=== PATIENT | male | born 1945 | race Asian ===

== ENCOUNTER 2018-09-21 13:23 | Outpatient (CLI) | payer MEDICARE, MEDICAID ==
[~2018-09-21] VITALS: Ht 167.6 cm; Wt 68.9 kg
[2018-09-21 13:45] VITALS: BP 145/51
--- NOTE | 2018-09-21 18:45 | Consultation ---
DATE OF CONSULTATION: 09/20/2018 GASTROENTEROLOGY CONSULTATION CHIEF COMPLAINT: Evaluation for screening colonoscopy and history of colonic polyps. HISTORY OF PRESENT ILLNESS: This is a very pleasant 73-year-old male with past medical history of asthma, end-stage renal disease, chronic obstructive pulmonary disease, history of coronary artery bypass graft, on Plavix, was referred to us for evaluation of colonoscopy for screening and history of colonic polyps. PAST MEDICAL HISTORY: 1. Asthma. 2. End-stage renal disease, on hemodialysis. 3. COPD. 4. Coronary artery disease, status post gastric bypass in 2001. Also, the patient had the cardiac stent placement 3 years ago. PAST SURGICAL HISTORY: Coronary artery bypass graft. MEDICATIONS: Plavix and see the list. ALLERGIES: No known drug allergies. FAMILY HISTORY: Noncontributory. SOCIAL HISTORY: The patient used to smoke. Denies any alcohol or IV drug abuse. REVIEW OF SYSTEMS: A 10-point review of systems was performed and pertinent positives in the history of present illness. PHYSICAL EXAMINATION: VITAL SIGNS: Temperature 97.7, pulse is 65, respirations 20, and blood pressure is 144/61. HEENT: Normocephalic and atraumatic. Sclerae anicteric. NECK: Supple. No evidence of obvious lymphadenopathy. CARDIOVASCULAR: Regular rhythm. Plus S1 and S2. No obvious murmur. LUNGS: Clear to auscultation bilaterally. ABDOMEN: Positive bowel sounds. Soft and nontender. No rebound. No guarding. No peritoneal sign. EXTREMITIES: No cyanosis, no clubbing, no edema. ASSESSMENT AND PLAN: A 73-year-old male with coronary artery disease, chronic obstructive pulmonary disease, and history of colonic polyps, was referred to us for evaluation for repeat colonoscopy. The patient was told to stop the Plavix 3 days before the procedure. The patient was given the instruction for colonoscopy with prep and scheduled for 10/02/2018 at [facility]. I want to thank, Dr. Vazquez for this kind referral. Rigo Wallace M.D. DR: CHARLA JOB#: [id number] CC: Perry Vazquez M.D.; Fax#: [phone]
[2018-09-22] MEDS ORDERED: PLAVIX75 MG ORAL (08:35)
[2018-09-22] MEDS ORDERED: UNOBMED (08:35)
== END 2018-09-21 16:10 | disposition home or self-care (01) ==
LOC: PAN 13:23
DX: Z01.818 Encounter for other preprocedural examination (principal); J44.9 Chronic obstructive pulmonary disease, unspecified; N18.6 End stage renal disease; Z99.2 Dependence on renal dialysis; Z98.84 Bariatric surgery status; Z95.5 Presence of coronary angioplasty implant and graft; Z87.891 Personal history of nicotine dependence; Z79.02 Long term (current) use of antithrombotics/antiplatelets; Z86.010 Personal history of colon polyps; I25.10 Atherosclerotic heart disease of native coronary artery without angina pectoris
CPT/HCPCS: 99202

== ENCOUNTER 2018-10-02 07:09 | Day surgery (SDC) | payer MEDICARE, MEDICAID ==
[~2018-10-02] VITALS: Ht 167.6 cm; Wt 67.1 kg
[2018-10-02] VITALS (10 sets, daily range): BP systolic 146–168; BP diastolic 36–75
[~2018-10-02 07:09] MED LIST: PLAVIX75 MG ORAL; UNOBMED
[2018-10-02] MEDS ORDERED: SIMVASTATIN40 MG ORAL (08:22)
[2018-10-02] MEDS ORDERED: AMLODIPINE BESY10 MG ORAL (08:22)
[2018-10-02] MEDS ORDERED: INDAPAMIDE1.25 MG PO (08:22)
[2018-10-02] MEDS ORDERED: PLAVIX75 MG ORAL (08:22)
[2018-10-02] MEDS ORDERED: FLOMAX0.4 MG ORAL (08:22)
[2018-10-02] MEDS ORDERED: CARVEDILOL12.5 MG ORAL (08:22)
[2018-10-02] MEDS ORDERED: CALCIUM ACETAT667 MG PO (08:22)
[2018-10-02] MEDS ORDERED: GABAPENTIN100 MG ORAL (08:22)
[2018-10-02] MEDS ORDERED: OYSCO-500500 M1 PO (08:22)
[2018-10-02] MEDS ORDERED: AVAPRO300 MG ORAL (08:22)
[2018-10-02 08:25] LABS: BASOPHILS % (AUTO) 1.1 % (0.0-2.0); EOSINOPHILS % (AUTO) 2.9 % (0.0-3.0); HEMATOCRIT 36.3 % (42.0-52.0); HEMOGLOBIN 12.4 G/DL (14.2-18.0); LYMPHOCYTES % (AUTO) 15.9 % (20.0-45.0); MEAN CORPUSCULAR VOLUME 88 FL (80-99); MONOCYTES % (AUTO) 10.4 % (1.0-10.0); NEUTROPHILS % (AUTO) 69.7 % (45.0-75.0); PLATELET COUNT 175 K/UL (150-450); RED CELL DISTRIBUTION WIDTH 13.5 % (11.6-14.8); WHITE BLOOD COUNT 7.4 K/UL (4.8-10.8)
[2018-10-02 08:26] LABS: ANION GAP 7 mmol/L (5-15); BLOOD UREA NITROGEN 15 mg/dL (7-18); CALCIUM 8.9 MG/DL (8.5-10.1); CARBON DIOXIDE 30 MMOL/L (21-32); CHLORIDE 99 MMOL/L (98-107); CREATININE 4.7 MG/DL (0.55-1.30); SODIUM 136 MMOL/L (136-145)
[2018-10-02] MEDS ORDERED: Propofol 200mg/20ml IV ONE (08:48)
[2018-10-02] MEDS ORDERED: Lidocaine 1% MPF 10mg/ml 5ml ONE (08:48)
--- NOTE | 2018-10-02 08:57 | Short Stay Surgery H&P ---
History of Present Illness History of Present Illness Chief Complaint see recent office note HPI Armando Pitts is a 73 year old male who was admitted on for Colon Screening Patient History Allergies: Coded Allergies: No Known Allergies (Unverified , 09/22/18) Medication History Scheduled Amlodipine Besylate* (Amlodipine Besylate*), 10 MG ORAL DAILY, (Reported) Calcium Acetate (Calcium Acetate), 667 MG PO DAILY, (Reported) Calcium Carbonate ([place]ysco-500), 500 MG PO BID, (Reported) Carvedilol* (Carvedilol*), 12.5 MG ORAL EVERY 12 HOURS, (Reported) Clopidogrel Bisulfate* (Plavix*), 75 MG ORAL DAILY, (Reported) Gabapentin* (Gabapentin*), 100 MG ORAL BID, (Reported) Indapamide (Indapamide), 1.25 MG PO DAILY, (Reported) Irbesartan* (Avapro*), 300 MG ORAL DAILY, (Reported) Simvastatin (Zocor), 40 MG ORAL BEDTIME, (Reported) Tamsulosin HCl (Flomax), 0.4 MG ORAL DAILY, (Reported) Physical Exam Vital Signs Last Vital Signs Date Time Temp Pulse Resp B/P (MAP) Pulse Ox O2 Delivery O2 Flow Rate FiO2 10/02/18 07:59 Room Air 10/02/18 07:41 97.8 64 18 158/75 99 Labs Laboratory Tests Test 10/02/18 08:10 White Blood Count 7.4 K/UL (4.8-10.8) Red Blood Count 4.10 M/UL (4.70-6.10) L Hemoglobin 12.4 G/DL (14.2-18.0) L Hematocrit 36.3 % (42.0-52.0) L Mean Corpuscular Volume 88 FL (80-99) Mean Corpuscular Hemoglobin 30.2 PG (27.0-31.0) Mean Corpuscular Hemoglobin Concent 34.1 G/DL (32.0-36.0) Red Cell Distribution Width 13.5 % (11.6-14.8) Platelet Count 175 K/UL (150-450) Mean Platelet Volume 7.4 FL (6.5-10.1) Neutrophils (%) (Auto) 69.7 % (45.0-75.0) Lymphocytes (%) (Auto) 15.9 % (20.0-45.0) L Monocytes (%) (Auto) 10.4 % (1.0-10.0) H Eosinophils (%) (Auto) 2.9 % (0.0-3.0) Basophils (%) (Auto) 1.1 % (0.0-2.0) Sodium Level 136 MMOL/L (136-145) Potassium Level 4.0 MMOL/L (3.5-5.1) Chloride Level 99 MMOL/L (98-107) Carbon Dioxide Level 30 MMOL/L (21-32) Anion Gap 7 mmol/L (5-15) Blood Urea Nitrogen 15 mg/dL (7-18) Creatinine 4.7 MG/DL (0.55-1.30) H Estimat Glomerular Filtration Rate mL/min (>60) Glucose Level 94 MG/DL (74-106) Calcium Level 8.9 MG/DL (8.5-10.1) Plan Attestation Are the patient's medical conditions optimized for surgery? Rigo Wallace MD October 02, 2018 08:57
--- NOTE | 2018-10-02 08:57 | Pre-Procedure Note/Attestation ---
Pre-Procedure Note/Attestation Complete Prior to Procedure Planned Procedure: not applicable Procedure Narrative: colonoscopy Indications for Procedure Pre-Operative Diagnosis: screening Attestation I attest that I discussed the nature of the procedure; its benefits; risks and complications; and alternatives (and the risks and benefits of such alternatives ), prior to the procedure, with the patient (or the patient's legal sales representative printing supplies). I attest that, if there was a reasonable possibility of needing a blood transfusion, the patient (or the patient's legal sales representative printing supplies) was given the [facility] standardized written summary, pursuant to the [place] Blood Safety Act ([place] Health and Safety Code # 1645, as amended). I attest that I re-evaluated the patient just prior to the surgery and that there has been no change in the patient's H&P, except as documented below: Rigo Wallace MD October 02, 2018 08:57
--- NOTE | 2018-10-02 09:17 | Anethesia Preoperative Eval ---
Anesthesia Pre-op PMH/ROS General Date of Evaluation: October 02, 2018 Time of Evaluation: 08:50 Anesthesiologist: Sendy Del Cid CRNA ASA Score: ASA 3 Mallampati Score Class I : Soft palate, uvula, fauces, pillars visible Class II: Soft palate, uvula, fauces visible Class III: Soft palate, base of uvula visible Class IV: Only hard plate visible Mallampati Classification: Class II Surgeon: Madison Diagnosis: Colon screening Surgical Procedure: Colonoscopy diagnostic Anesthesia History: none Social History: smoking Family History: no anesthesia problems Allergies: Coded Allergies: No Known Allergies (Unverified , 09/22/18) Medications: see eMAR Patient NPO?: Yes NPO Date: October 02, 2018 NPO Time: 00:00 Past Medical History Cardiovascular: Reports: HTN, CAD, other - CA stent; Denies: RI, valve dz, arrhythmia Pulmonary: Reports: COPD; Denies: asthma, WHITLEY, other Gastrointestinal/Genitourinary: Reports: GERD, ESRD; Denies: CRI, other Neurologic/Psychiatric: 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 Exam Physician Exam Last Vital Signs Date Time Temp Pulse Resp B/P (MAP) Pulse Ox O2 Delivery O2 Flow Rate FiO2 10/02/18 07:59 Room Air 10/02/18 07:41 97.8 64 18 158/75 99 Constitutional: NAD Neurologic: other - alert & oriented Cardiovascular: RRR Respiratory: CTA Gastrointestinal: S/NT/ND Airway Exam Mallampati Score: Class II MO: full Neck: TMD TMD: > 3 FB ROM: full Teeth: missing Dentures: upper, lower Anesthesia Pre-op A/P Labs Hematology Test 10/02/18 08:10 White Blood Count 7.4 K/UL (4.8-10.8) Red Blood Count 4.10 M/UL (4.70-6.10) L Hemoglobin 12.4 G/DL (14.2-18.0) L Hematocrit 36.3 % (42.0-52.0) L Mean Corpuscular Volume 88 FL (80-99) Mean Corpuscular Hemoglobin 30.2 PG (27.0-31.0) Mean Corpuscular Hemoglobin Concent 34.1 G/DL (32.0-36.0) Red Cell Distribution Width 13.5 % (11.6-14.8) Platelet Count 175 K/UL (150-450) Mean Platelet Volume 7.4 FL (6.5-10.1) Neutrophils (%) (Auto) 69.7 % (45.0-75.0) Lymphocytes (%) (Auto) 15.9 % (20.0-45.0) L Monocytes (%) (Auto) 10.4 % (1.0-10.0) H Eosinophils (%) (Auto) 2.9 % (0.0-3.0) Basophils (%) (Auto) 1.1 % (0.0-2.0) Chemistry Test 10/02/18 08:10 Sodium Level 136 MMOL/L (136-145) Potassium Level 4.0 MMOL/L (3.5-5.1) Chloride Level 99 MMOL/L (98-107) Carbon Dioxide Level 30 MMOL/L (21-32) Anion Gap 7 mmol/L (5-15) Blood Urea Nitrogen 15 mg/dL (7-18) Creatinine 4.7 MG/DL (0.55-1.30) H Estimat Glomerular Filtration Rate mL/min (>60) Glucose Level 94 MG/DL (74-106) Calcium Level 8.9 MG/DL (8.5-10.1) Studies Pre-op Studies: EKG - NSR, LAE, ST and T wave, prolonged QT Risk Assessment & Plan Assessment: ASA 3, ok to proceed Plan: MAC Status Change Before Surgery: Yes Pre-Antibiotics Given Within 1 Hr of Incision: Sendy Chawla CRNA October 02, 2018 09:17
--- NOTE | 2018-10-02 09:49 | Endoscopy Procedure Note ---
Endoscopy Procedure Note General Indication for Procedure: colon polyps Procedures Performed: colonoscopy Operative Findings/Diagnosis: 13 polyps Specimen: yes Pt Tolerated Procedure Well: Yes Estimated Blood Loss: none Anesthesia Anesthesiologist: jeffery Anesthesia: MAC Inserted Devices Implant(s) used?: No Quality Quality of Bowel Preparation: Good Did scope reach the cecum?: Yes Was there any complications?: No GI Core Measures 50 yrs or older w/o bx or poly: No 10yrs. F/U not recommended: Yes If not recommended, why?: Above average risk 10 yrs. F/U needed: Yes 18 years or older w/prev. colo: Yes <3yrs. since last colonoscopy: No Rigo Wallace MD October 02, 2018 09:49
--- NOTE | 2018-10-02 10:00 | Immediate Post-Op Evaluation ---
Immediate Post-Op Evalulation Immediate Post-Op Evalulation Procedure: Colonoscopy, polypectomy Date of Evaluation: October 02, 2018 Time of Evaluation: 09:50 IV Fluids: 0.9 NS 50 ml Blood Pressure Systolic: 146 Blood Pressure Diastolic: 60 Pulse Rate: 48 Respiratory Rate: 16 O2 Sat by Pulse Oximetry: 100 Temperature (Fahrenheit): 97.4 Pain Score (1-10): 0 Nausea: No Vomiting: No Complications none Patient Status: awake, reacts, patent Hydration Status: adequate Given Within 1 Hr of Incision: Sendy Chawla CRNA October 02, 2018 10:00
--- NOTE | 2018-10-02 12:24 | 48 Hour Post Anesthesia Eval ---
Post Anesthesia Evaluation Procedure: Colonoscopy, polypectomy Date of Evaluation: October 02, 2018 Time of Evaluation: 12:23 Blood Pressure Systolic: 167 0: 54 Pulse Rate: 55 Respiratory Rate: 17 Temperature (Fahrenheit): 97.4 O2 Sat by Pulse Oximetry: 97 Airway: patent Nausea: No Vomiting: No Pain Intensity: 0 Hydration Status: adequate Cardiopulmonary Status: stable Mental Status/LOC: patient returned to baseline Follow-up Care/Observations: per GI Post-Anesthesia Complications: None Follow-up care needed: N/A Sendy Del Cid CRNA October 02, 2018 12:24
--- NOTE | 2018-10-02 14:13 | Cardiology Report ---
APPROVED REPORT EKG Measurement Heart [id number] Normal sinus rhythm Possible Left atrial enlargement Nonspecific ST and T wave abnormality Prolonged QT Abnormal ECG
--- NOTE | 2018-10-02 16:30 | Procedure Note ---
DATE OF PROCEDURE: 10/02/2018 SURGEON: Rigo Wallace M.D. REFERRING PHYSICIAN: Perry Vazquez M.D. PROCEDURE: Colonoscopy with snare polypectomy and biopsy. ANESTHESIA: Per Sendy . INSTRUMENT: Olympus adult flexible colonoscope. INDICATIONS: Screening colonoscopy, history of colonic polyps. REASON FOR PROCEDURE: The procedure, risks, benefits, and possible consequences, including hemorrhage, aspiration, perforation and infection, and alternative treatments, were explained to the patient/legal guardian by Dr. Rigo Wallace and the patient/legal guardian understood and accepted these risks. PROCEDURE IN DETAIL: After informed consent was obtained and the patient was adequately sedated, first rectal exam was performed, which showed positive for external and internal hemorrhoids. Then, the scope was advanced from rectum into the cecum documented by appendiceal orifice, ileocecal valve, and right upper quadrant palpation. Quality of prep was good. The patient had numerous polyps. Total of 13 polyps were removed from this colonoscopy examination; three from the cecum, one from the ascending, one from the rectum, one from descending, and the rest from the transverse colon. Most of these polyps were removed with snare polypectomy technique. The largest polyp was in the rectum measured over about 1.3 cm in size, removed with snare polypectomy technique. Retroflexion of rectum showed evidence of internal hemorrhoids. SUMMARY OF FINDINGS: 1. Numerous polyps, 13 polyps removed in this colonoscopy examination. 2. Internal and external hemorrhoids. RECOMMENDATIONS: 1. Follow up path. 2. We will recommend repeat colonoscopy in one year. I want to thank Dr. Vazquez for this kind referral. Rigo Wallace M.D. DR: REUBEN JOB#: [id number] CC: Perry Vazquez M.D.; Fax#: [phone]
== END 2018-10-02 11:20 | disposition home or self-care (01) ==
LOC: GAS 07:09
DX: Z12.11 Encounter for screening for malignant neoplasm of colon (principal); D12.7 Benign neoplasm of rectosigmoid junction; D12.0 Benign neoplasm of cecum; D12.4 Benign neoplasm of descending colon; D12.3 Benign neoplasm of transverse colon; K63.5 Polyp of colon; K64.8 Other hemorrhoids; K64.4 Residual hemorrhoidal skin tags; Z79.899 Other long term (current) drug therapy; Z86.010 Personal history of colon polyps
CPT/HCPCS: 36415; 45380; 45385; 80048; 82962; 85025; 93005; J2704; 94003; 94150